=== PATIENT | female | born 1985 | race Caucasian/White ===

== ENCOUNTER 2016-04-26 10:49 | Emergency (ER) | payer OTHER ==
[~2016-04-26] VITALS: Wt 63.5 kg
[~2016-04-26 10:49] MED LIST: TERB250T46 PO
[2016-04-26] MEDS ORDERED: KETOROLAC 30 MG INJ IM STA (13:20)
--- NOTE | 2016-04-26 13:20 | ERD ---
ER Documentation Chief Complaint Date/Time DATE: 04/26/16 TIME: 12:49 Chief Complaint umbilical pain for the past few months, sharp,no n/v/d HPI 30 y/o female presents to ED for lower abdominal pain. Described as sharp non- radiating, states this more on her "navel area.' Pain rate of 7/10 at this time. On and off for about 4 months. Got worse yesterday while she was working. States she was relieved of pain yesterday after she took a tablet of [place] 5/ 325 mg pill, left over from her dental pain. Also stated that sometimes her pain is worse on an empty stomach but not really sure this is relieved by intake of food. Denies headache, loss of consciousness, dizziness, blurry vision, changes in vision, photophobia, facial pain, ear pain, throat pain, difficulty swallowing, neck pain, shoulder pain, chest pain, cough, hemoptysis, back pain, loss of appetite, nausea, vomiting, hematochezia, diarrhea, constipation, urinary symptoms, , the possibility of being , bladder and bowel incontinences, vaginal bleeding, vaginal discharge, irregular menstrual periods , being sexually active for 4 months, extremity weakness, extremity tenderness, numbness or tingling sensation, difficulty walking, recent travel, recent exposure to illness, recent antibiotic use in the last 3 months, fever, chills. Allergy: NKA PMH: Multiple sclerosis Family medical history: Denies AO LMP: 04/23/16. Medications: Zuni Surgery: Denies Primary Social History: Works as a [employer] Occasional drinks alcoholic beverages. Denies smoking, use of illegal drugs. ROS All systems reviewed and are negative except as per history of present illness. Medications Home Meds Active Scripts Ibuprofen* (Motrin*) 600 Mg Tab, 600 MG PO Q6 Y for PAIN, #30 TAB Prov:KAREN LIU 04/26/16 Terbinafine* (Lamisil*) 250 Mg Tablet, 250 MG PO BID, #28 TAB 0 Refills Prov:GIO BATEMAN PA-C 06/03/15 PMhx/Soc History of Surgery: No Anesthesia Reaction: No Hx Neurological Disorder: No Hx Respiratory Disorders: No Hx Cardiac Disorders: No Hx Psychiatric Problems: No Hx Miscellaneous Medical Probl: Yes (MS) Hx Alcohol Use: No Hx Substance Use: No Hx Tobacco Use: No Smoking Status: Never smoker Physical Exam Vitals Vital Signs Date Time Temp Pulse Resp B/P Pulse Ox O2 Delivery O2 Flow Rate FiO2 04/26/16 10:57 97.7 78 20 105/68 99 Physical Exam CONSTITUTIONAL: Well-appearing; well-nourished; in no apparent distress. HEAD: Normocephalic; atraumatic. EYES: Conjunctiva clear, sclera non-icteric, EOM intact. PERRL Ears: Hearing intact. EACs clear, TMs non-bulging, non-inflamed, translucent & mobile, ossicles normal appearance, No obstructions, no erythema, no discharges Nose: No obstructions. No polyps. No external lesions. Mucosa non-inflamed. No external lesions, septum and turbinates normal. No rhinorrhea. No discharges. Frontal sinus is non-tender to palpation. Maxillary sinus is non-tender to palpation. MOUTH: Moist mucous membranes, no lesion, no obstructions, no vesicles, no thrush, patent airway Throat: Uvula in midline. Right tonsil is +1 with no erythema, no exudate. Left tonsil is +1 with no erythema, no exudate. Tolerating secretions well. Good gag reflex. Patent airway. Neck: Supple, without lesions, bruits, or adenopathy. No mass. Thyroid non- enlarged and non-tender to palpation. CHEST: Symmetrical chest. Respirations even and not labored. No retractions noted. CARDIOVASCULAR: Normal S1, S2. RRR. No murmurs, gallops. RESPIRATORY: Normal chest excursion with respiration; breath sounds clear and equal bilaterally; no wheezes, rhonchi, or rales. Breathing even and unlabored. Speaking in clear, full, and complete sentences w/ ease. ABDOMEN: Normal bowel sounds normal. Soft, round, non-distended, non-guarding, no rebound, no organomegaly, no masses, no pulsating abdominal mass. No hernia. No peritoneal signs. Mild tenderness to lower abdominal area, right and left lower abdominal area on deep palpation. : No CVA tenderness. BACK: Symmetrical shoulder. Spine is midline without deformity, tenderness. No evidence of trauma or deformity. PELVIS: Stable pelvis. No evidence of trauma or deformity. MUSCULOSKELETAL: Normal gait and station. No misalignment, asymmetry, crepitation, defects, tenderness, masses, effusions, decreased range of motion, instability, atrophy or abnormal strength or tone in the head, neck, spine, ribs , pelvis or extremities. No calf tenderness. NEUROVASCULAR: Distal pulses are present. Pedal pulse are present, equal, and normal. Capillary refills are < 2 seconds. NEUROLOGIC: Alert and oriented x4. Speaks full and clear sentences. Cranial Nerves II-XII normal. Sensation to pain, touch, and proprioception normal. Grossly unremarkable. No neurologic deficits. Romberg test is negative. PSYCHOLOGICAL: The patients mood and manner are appropriate. No hallucinations , delusions. Not SI. Not HI. Has the capacity to decide for self SKIN: Normal for age and ethnicity; warm; dry; good turgor; no apparent lesions or exudates. No rashes, hives, discoloration. Intact. Result Diagram: 04/26/16 1335 04/26/16 1335 Results 24 hrs Laboratory Tests Test 04/26/16 13:35 Alanine Aminotransferase (ALT/SGPT) 25IU/L Albumin 4.4g/dl Albumin/Globulin Ratio 1.29 Alkaline Phosphatase 47IU/L Anion Gap 17 Aspartate Amino Transf (AST/SGOT) 22IU/L Basophils # 0.110^3/ul Basophils % 0.8% Blood Urea Nitrogen 10mg/dl Calcium Level 9.4mg/dl Carbon Dioxide Level 25mmol/L Chloride Level 102mmol/L Creatinine 0.63mg/dl Direct Bilirubin 0.00mg/dl Eosinophils # 0.110^3/ul Eosinophils % 1.5% Globulin 3.40g/dl Glucose Level 84mg/dl Hematocrit 38.2% Hemoglobin 12.7g/dl Indirect Bilirubin 0.2mg/dl Lipase 114U/L Lymphocytes # 2.110^3/ul Lymphocytes % 29.5% Mean Corpuscular Hemoglobin 31.3pg Mean Corpuscular Hemoglobin Concent 33.3g/dl Mean Corpuscular Volume 94.1fl Mean Platelet Volume 7.6fl Monocytes # 0.310^3/ul Monocytes % 4.5% Neutrophils # 4.510^3/ul Neutrophils % 63.7% Nucleated Red Blood Cells # 0.010^3/ul Nucleated Red Blood Cells % 0.0/100WBC Platelet Count 29193^3/UL Potassium Level 4.2mmol/L Red Blood Count 4.0610^6/ul Red Cell Distribution Width 13.1% Sodium Level 140mmol/L Total Bilirubin 0.2mg/dl Total Protein 7.8g/dl Urine Bilirubin NEGATIVE Urine Clarity CLEAR Urine Color LT. YELLOW Urine Glucose NEGATIVE% Urine Hemoglobin NEGATIVE Urine Ketones NEGATIVE Urine Leukocyte Esterase NEGATIVE Urine Nitrite NEGATIVE Urine Specific [place] 1.025 Urine Total Protein NEGATIVE Urine Urobilinogen 0.2 E.U./dL Urine pH 6.0 White Blood Count 7.110^3/ul Current Medications Medications (Trade) Dose Ordered Sig/Lor Route PRN Reason Start Time Stop Time Status Last Admin Dose Admin Ketorolac Tromethamine (Toradol) 30 mg ONCE STAT IM 04/26/16 13:20 04/26/16 13:21 DC 04/26/16 13:39 Procedures/MDM Examination: Unremarkable examination except mild tenderness to lower abdominal area, right and left lower abdominal area on deep palpation. Disease process, medical treatment was explained to the patient and family member. They verbalized understanding and agreed with the diagnostic tests, medical treatment, and follow-up care. Radiology: Pelvic ultrasound revealed FINDINGS: The uterus is visualized and measures a 0.53 x 3.4 x 4 cm in size. The endometrial echo complex is normal and measures 6 mm. There is no evidence for free fluid. The right ovary has a normal echotexture and measures 2.1 x 1.6 x 1.8 cm in size . The left ovary has a normal echotexture and measures 3 x 2 x 1.9 cm in size. 1.5 x 0.9 x 0.9 cm left ovarian cyst. Normal ovarian blood flow bilaterally. No adnexal masses are noted. IMPRESSION: 1.5 cm of various cyst otherwise unremarkable pelvic ultrasound. Blood works unremarkable POC urine : Negative Urinalysis: Unremarkable Treatment: Toradol Re-evaluation: Denies abdominal pain, back pain. GI exam is unremarkable. Consultation: None Differential diagnosis: Ovarian torsion versus ovarian cyst versus fibroids versus urinary tract infection versus abdominal pain Final diagnosis: Ovarian cysts Medical decision makin30 y/o female presents to ED for lower abdominal pain. Described as sharp non-radiating, states this more on her "navel area.' Pain rate of 7/10 at this time. On and off for about 4 months. Got worse yesterday while she was working. States she was relieved of pain yesterday after she took a tablet of [place] 5/325 mg pill, left over from her dental pain. Also stated that sometimes her pain is worse on an empty stomach but not really sure this is relieved by intake of food. Low suspicion to appendicitis due to symptoms has been going on for 4 months. Low suspicion for ovarian torsion, fibroids, urinary tract infection. Medications prescribed are the following: Ibuprofen Patient and family member are made aware of the side effects and adverse reactions of the medications prescribed. Instructed on when to seek emergent and medical attention in case allergic/anaphylactic reactions or severe side effects and or adverse reactions to medications. Patient and family member verbalized understanding. Patient instructed Instructed to follow-up with his PCP in 24-48 hours. Primary care physician will refer patient to assistant plant control operator. Instructed to Call 911 for chest pain, shortness of breath. Advised to come back here in ED as soon as possible for severity of symptoms which includes but not limited to: any new symptoms; shortness of breath/difficulty of breathing; cardiovascular changes; severe gastrointestinal symptoms; signs and symptoms of bleeding and or infection; signs of compartment syndrome/neurovascular changes; neurological changes/deficits. Patient and family member verbalized understanding. Upon discharge, patient is alert and oriented x 4, speaks full and clear sentences, denies pain, has no neurological deficits, has no neurovascular deficits, difficulty of breathing. Breathing even and unlabored. Lung sounds are clear to auscultation. Not in distress. Appears comfortable. Ambulatory with steady gait. Appears satisfied with care provided here in ED. Departure Condition: Good Additional Instructions: Patient instructed Instructed to follow-up with his PCP in 24-48 hours. Primary care physician will refer patient to assistant plant control operator. Instructed to Call 911 for chest pain, shortness of breath. Advised to come back here in ED as soon as possible for severity of symptoms which includes but not limited to: any new symptoms; shortness of breath/difficulty of breathing; cardiovascular changes; severe gastrointestinal symptoms; signs and symptoms of bleeding and or infection; signs of compartment syndrome/neurovascular changes; neurological changes/deficits. Patient and family member verbalized understanding. KAREN LIU Apr 26, 2016 13:16
[2016-04-26 13:56] LABS: BASOPHIL # 0.1 10^3/ul (0.0-0.1); BASOPHILS % 0.8 % (0.0-2.0); EOSINOPHILS # 0.1 10^3/ul (0.0-0.5); EOSINOPHILS % 1.5 % (0.0-7.0); HEMATOCRIT 38.2 % (37.0-47.0); HEMOGLOBIN 12.7 g/dl (12.0-16.0); LYMPHOCYTES # 2.1 10^3/ul (0.8-2.9); LYMPHOCYTES % 29.5 % (15.0-51.0); MEAN CORPUSCULAR HEMOGLOBIN 31.3 pg (29.0-33.0); MEAN CORPUSCULAR HGB CONC 33.3 g/dl (32.0-37.0); MEAN CORPUSCULAR VOLUME 94.1 fl (82.0-101.0); MEAN PLATELET VOLUME 7.6 fl (7.4-10.4); MONOCYTE # 0.3 10^3/ul (0.3-0.9); MONOCYTES % 4.5 % (0.0-11.0); NEUTROPHIL # 4.5 10^3/ul (1.6-7.5); NEUTROPHILS % 63.7 % (39.0-77.0); PLATELET COUNT 270 10^3/UL (140-440); RED BLOOD COUNT 4.06 10^6/ul (4.20-5.40); RED CELL DISTRIBUTION WIDTH 13.1 % (11.5-14.5); UNCORRECTED WBC 7.1 10^3/ul (4.8-10.8); WHITE BLOOD COUNT 7.1 10^3/ul (4.8-10.8)
[2016-04-26 13:58] LABS: ADD UMIC NO; URINE BILIRUBIN (Dip) NEGATIVE (NEGATIVE); URINE BLOOD (Dip) NEGATIVE (NEGATIVE); URINE COLOR LT. YELLOW (YELLOW); URINE GLUCOSE (Dip) NEGATIVE (NEGATIVE); URINE KETONES (Dip) NEGATIVE (NEGATIVE); URINE LEUKOCYTE ESTERASE (Dip) NEGATIVE (NEGATIVE); URINE NITRITE (Dip) NEGATIVE (NEGATIVE); URINE TOTAL PROTEIN (Dip) NEGATIVE (NEGATIVE); URINE UROBILINOGEN (Dip) 0.2 E.U./dL (0.1-1.0)
[2016-04-26 14:01] LABS: CONDITION 1
[2016-04-26 14:05] LABS: ALBUMIN 4.4 g/dl (3.3-4.9)
[2016-04-26 14:06] LABS: POTASSIUM 4.2 mmol/L (3.5-5.1)
[2016-04-26 14:08] LABS: BILIRUBIN,INDIRECT 0.2 mg/dl (0-1.1); BILIRUBIN,TOTAL 0.2 mg/dl (0.2-1.3); CREATININE 0.63 mg/dl (0.44-1.00)
[2016-04-26 14:09] LABS: ALBUMIN/GLOBULIN RATIO 1.29; CALCIUM 9.4 mg/dl (8.4-10.2); TOTAL PROTEIN 7.8 g/dl (6.1-8.1)
--- NOTE | 2016-04-26 14:32 | RADRPT ---
PROCEDURE: US Pelvis. CLINICAL INDICATION: abdominal pain TECHNIQUE: Multiple sonographic images of the pelvis were obtained utilizing a transabdominal and endovaginal technique. The images were reviewed on a PACS workstation. COMPARISON: None. FINDINGS: The uterus is visualized and measures a 0.53 x 3.4 x 4 cm in size. The endometrial echo complex is n ormal and measures 6 mm. There is no evidence for free fluid. The right ovary has a normal echotextu re and measures 2.1 x 1.6 x 1.8 cm in size . The left ovary has a normal echotexture and measures 3 x 2 x 1.9 cm in size. 1.5 x 0.9 x 0.9 cm left ovarian cyst. Normal ovarian blood flow bilaterally. No adnexal masses are noted. IMPRESSION: 1.5 cm of various cyst otherwise unremarkable pelvic ultrasound. RPTAT:AAJJ Jefry Lainez Physician Date Time Electronically viewed and signed by Physician Nisreen on 04/26/2016 14:31 TIFF/
[2016-04-26] MEDS ORDERED: IBUP-1542 PO (14:48)
[2016-04-26 15:07] VITALS: BP 112/65; PULSE 75; RESP 18; TEMP 98.3
[2016-04-26] MEDS ORDERED: HYDR-906 PO (15:12)
== END 2016-04-26 15:17 | disposition home or self-care (01) ==
LOC: FTE 10:49
DX: N83.202 Unspecified ovarian cyst, left side (principal)
CPT/HCPCS: 76830; 76856; 80053; 81003; 83690; 85025; J1885; 96372

== ENCOUNTER 2016-05-01 13:14 | Emergency (ER) | END 2016-05-01 18:31 | disposition home or self-care (01) | DX: R10.33 Periumbilical pain (principal); R11.0 Nausea | CPT/HCPCS: 36415; 74177; 80053; 81003; 83690; 85025; 96374; 96375; J2270; J2405; Q9967; Z7502; Z7610 ==

== ENCOUNTER 2016-07-23 23:42 | Emergency (ER) | payer OTHER ==
[~2016-07-23] VITALS: Ht 165.1 cm; Wt 65.5 kg
[~2016-07-23 23:42] MED LIST changes: +HYDR-906 PO; +IBUP-1542 PO
[2016-07-24 00:11] VITALS: Ht 165.1 cm; Wt 65.5 kg
[2016-07-24] MEDS ORDERED: HYDROCODONE/APAP (5/325) TAB PO STA (01:55)
[2016-07-24] MEDS ORDERED: HYDR-906 PO (01:57)
[2016-07-24 02:10] VITALS: BP 114/60; PULSE 88; RESP 20; TEMP 98.5
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
== END 2016-07-24 02:15 | disposition home or self-care (01) ==
LOC: FTE 23:42
DX: S39.012A Strain of muscle, fascia and tendon of lower back, initial encounter (principal); K40.90 Unilateral inguinal hernia, without obstruction or gangrene, not specified as recurrent; V43.62XA Car passenger injured in collision with other type car in traffic accident, initial encounter
CPT/HCPCS: 99283